=== PATIENT | female | born 1950 | race Caucasian/White ===

== ENCOUNTER 2017-10-25 17:35 | Emergency (ER) | payer MEDICARE, OTHER ==
[2017-10-25] MEDS ORDERED: Ketorolac Tromethamine 30 MG/ML VIAL ONE (17:56)
--- NOTE | 2017-10-25 20:33 | RAD ---
RADIOGRAPH RIGHT HAND 3 VIEWS: 10/25/17 HISTORY: 67-year-old female with nontraumatic right hand pain with decreased range of motion. COMPARISON: None. FINDINGS: No fracture or dislocation. DJD at multiple joints, including moderate to severe at first IP, second DIP, and especially third DIP. Mild to moderate DJD at first CMC. The rest of the joint space are andrea ntained without erosions or osteophytes. Bone mineralization is normal. No periosteal elevation or de structive osseous lesion. No fracture or soft tissue calcification. IMPRESSION: Osteoarthrosis of the first interphalangeal joint, and the second and third distal interphalangeal jonny ints, and to a lesser degree the first carpometacarpal joint. POS: [facility]
== END 2017-10-25 18:40 | disposition home or self-care (01) ==
LOC: SCSER 17:35
DX: M79.641 Pain in right hand (principal); E03.9 Hypothyroidism, unspecified
CPT/HCPCS: 96372; J1885

== ENCOUNTER 2018-05-30 12:05 | Outpatient (CLI) | payer MEDICARE | END 2018-05-30 12:06 | disposition home or self-care (01) | LOC: BICMAMMO 12:05 | PROVIDERS: ATTEND Obstetrics & Gynecology | DX: Z12.31 Encounter for screening mammogram for malignant neoplasm of breast (principal) | CPT/HCPCS: 77063; 77067 ==

== ENCOUNTER 2018-06-03 09:58 | Outpatient (CLI) | payer MEDICARE ==
--- NOTE | 2018-06-03 11:40 | BD ---
DEXA BONE DENSITY SCAN: DATE: 06/03/2018. COMPARISON: None. HISTORY: Postmenopausal female, assess for osteoporosis. FINDINGS: Lumbar Spine: BMD (g/cm2) L1 1.161 T-Score: 1.6 L2 1.378 T-Score: 3.2 L3 1.319 T-Score: 2.1 L4 1.177 T-Score: 1.1 L1-L4 1.256 T-Score: 1.9 Femoral Neck: 1.012 T-Score: 1.5 Total Femur: 1.235 T-Score: 2.4 The FRAX-WHO fracture risk assessment tool is not reported as all T-scores are at or above -1.0. Impression: Normal lumbar spine and femoral neck bone mineral density. POS: [facility]
== END 2018-06-03 09:59 | disposition home or self-care (01) ==
LOC: BICMAMMO 09:58
PROVIDERS: ATTEND Obstetrics & Gynecology
DX: M81.0 Age-related osteoporosis without current pathological fracture (principal); M85.80 Other specified disorders of bone density and structure, unspecified site
CPT/HCPCS: 77080

== ENCOUNTER 2018-08-25 11:52 | Observation (INO) | payer MEDICARE ==
[2018-08-25 12:34] LABS: #Basophils 0.1 thou/uL (0.0-0.2); #Eosinphils 0.1 thou/uL (0.0-0.7); #Lymphocytes 1.6 thou/uL (1.20-3.40); #Monocytes 0.4 thou/uL (0.11-0.59); #Neutrophils 7.1 thou/uL (1.40-6.50); %Basophils 0.6 % (0.0-1.0); %Eosinophils 0.7 % (0.0-10.0); %Lymphocytes 17.2 % (21.0-51.0); %Monocytes 4.6 % (0.0-10.0); %Neutrophils 76.9 % (42.0-75.0); Mean Corpuscular HGB CONC 33.3 g/dL (32.0-36.0); Mean Corpuscular Hemoglobin 31.1 pg (27.0-31.0); Mean Corpuscular Volume 93.5 fL (78.0-98.0); Mean Platelet Volume 7.8 fL (7.4-10.4); Platelet Count 203 thou/uL (130-400); RBC Distribution Width 11.7 % (11.5-14.5); Red Blood Cell (RBC) Count 4.49 mill/uL (4.20-5.40); White Blood Cell (WBC) Count 9.2 thou/uL (4.8-10.8)
[2018-08-25] MEDS ORDERED: Nitroglycerin 2% Ointment 1 INCH/1 GM Packet ONE (12:56)
--- NOTE | 2018-08-25 12:56 | CT ---
CT HEAD WITHOUT CONTRAST: Date: 08/25/18 Multiple axial tomograms obtained through the head without IV enhancement. INDICATION: Mental status change. FINDINGS: Ventricles have normal size and position. No evidence of intracranial mass, hemorrhage, edema, or inf arct. There is opacification of the visualized left maxillary sinus with thickened schneider, indicating a surgical asst gasper mucosal process. Opacification of the visualized left ethmoid and frontal air cells also noted. T he right paranasal sinuses are clear, as are the mastoids. IMPRESSION: 1. No acute intracranial abnormality. 2. 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 POS: [facility]
[2018-08-25 13:00] LABS: ALT (SGPT) 18 U/L (8-55); AST (SGOT) 18 U/L (5-34); Albumin 4.2 g/dL (3.4-4.8); Alkaline Phosphatase 69 U/L (40-150); Anion Gap 13 mmol/L (10-20); BUN (Urea Nitrogen) 14 mg/dL (9.8-20.1); Bilirubin, Total 0.4 mg/dL (0.2-1.2); Calc. Creatinine Clearance 0 mL/min (70-130); Calcium 9.5 mg/dL (7.8-10.44); Carbon Dioxide 24 mmol/L (23-31); Chloride 104 mmol/L (98-107); Estimated GFR-MDRD 82; Globulin 2.9 g/dL (2.4-3.5); Glucose 105 mg/dL (80-115); Lipase 24 U/L (8-78); Potassium 4.5 mmol/L (3.5-5.1); Protein, Total 7.1 g/dL (6.0-8.3); Sodium 136 mmol/L (136-145)
--- NOTE | 2018-08-25 13:04 | RAD ---
PORTABLE CHEST: Date: 08/25/18 HISTORY: Chest pain. FINDINGS: Lung donis are clear. Heart and mediastinum unremarkable. Vasculature normal. IMPRESSION: No acute findings. POS: [facility]
[2018-08-25] MEDS ORDERED: ISOVUE-370 76%-LOCM 1 ML ONE (13:23)
--- NOTE | 2018-08-25 14:17 | PDOC.FPRHP ---
- History of Present Illness Chief Complaint: Slurred speech History of Present Illness: This is a 68 yo female with a pmh of HTN, hypothyroidism who presents to the ED with a cc of vertigo and slurred speech. She reports that she has had ringing in her ears for the past few days and has felt pressure in her ears for the las 3 days. This morning she report vertigo and her daughter reports slurred speech as well. Daughter also reports left leg drift and mild weakness in left extremities. These symptoms resolved at ~10 am. She also reports some epigastric pain and nausea. She has vomited twice. ED Course: 500ml NS bolus Nitro 1 inch - Allergies/Adverse Reactions Allergies Allergy/AdvReac Type Severity Reaction Status Date / Time No Known Allergies Allergy Verified 08/25/18 16:58 - Home Medications Medication Instructions Recorded Confirmed Type Estradiol/Norethindrone Acet 1 tablet PO MWF 08/25/18 08/25/18 History [Activella] Fluticasone Propionate [Flonase 1 spray EA NARE DAILY PRN 08/25/18 08/25/18 History Allergy Relief] Hydrochlorothiazide 12.5 mg PO DAILY 08/25/18 08/25/18 History Levocetirizine Dihydrochloride 5 mg PO HS 08/25/18 08/25/18 History Levothyroxine Sodium [Synthroid] 50 mcg PO DAILY 08/25/18 08/25/18 History - History PMHx: HTN, hypothyroidism PSHx: Hemithyroidecomty, cholecystectomy, D&C, Hernia FHx: non-contributory Social: Denies D/T, socially drinks - Review of Systems General: denies: fever/chills, weight/appetite/sleep changes, night sweats, fatigue Eyes: denies: eye pain, vision changes ENT: denies: nasal congestion, rhinorrhea Respiratory: denies: cough, congestion, shortness of breath, exercise intolerance Cardiovascular: denies: chest pain, palpitation, edema, paroxysmal nocturnal dyspnea, orthopnea Gastrointestinal: reports: nausea, vomiting, abdominal pain. denies: diarrhea, constipation, GI bleeding Genitourinary: denies: incontinence, dysuria Skin: denies: rashes, lesions Musculoskeletal: denies: pain, tenderness Neurological: reports: other (vertigo). denies: numbness, syncope, seizure, weakness Psychological: denies: anxiety, depression - Vital signs BP: 142/79 HR: 56 RR: 18 Tmax: 98.6 Pox: 97% on ra Wt: 117 kg - Physical Exam Constitutional: NAD, awake, alert and oriented, well developed HEENT: normocephalic and atraumatic, PERRLA, EOMI, conjunctiva clear, TM's clear and intact (no signs of erythema or masses behind TMs), grossly normal hearing, MMM Neck: FROM, trachea midline, no JVD Chest: no-tender to palpation, no lesions Heart: RRR, normal S1/S2, no murmurs/rubs/gallops, pulses present, no edema Lungs: CTAB, no respiratory distress, good air movement, no wheezing Abdomen: soft, non-tender, bowel sounds present, no masses/distention Musculoskeletal: normal structure, normal tone, ROM grossly normal Neurological: no focal deficit, CN II-XII intact, normal sensation, other (no dysdiadochokinesis) Skin: good turgor, capillary refill <2 seconds Heme/Lymphatic: no unusual bruising or bleeding, no purpura Psychiatric: normal mood and affect, good judgment and insight, intact recent and remote memory FMR H&P: Results - Labs Result Diagrams: 08/26/18 04:53 08/26/18 04:53 Lab results: WBC 9.2 thou/uL (4.8-10.8) 08/25/18 12:27 Hgb 14.0 g/dL (12.0-16.0) 08/25/18 12:27 Hct 41.9 % (36.0-47.0) 08/25/18 12:27 MCV 93.5 fL (78.0-98.0) 08/25/18 12:27 Plt Count 203 thou/uL (130-400) 08/25/18 12:27 Neutrophils % 76.9 % (42.0-75.0) H 08/25/18 12:27 Sodium 136 mmol/L (136-145) 08/25/18 12:27 Potassium 4.5 mmol/L (3.5-5.1) 08/25/18 12:27 Chloride 104 mmol/L (98-107) 08/25/18 12:27 Carbon Dioxide 24 mmol/L (23-31) 08/25/18 12:27 BUN 14 mg/dL (9.8-20.1) 08/25/18 12:27 Creatinine 0.71 mg/dL (0.6-1.1) 08/25/18 12:27 Glucose 105 mg/dL (80-115) 08/25/18 12:27 Calcium 9.5 mg/dL (7.8-10.44) 08/25/18 12:27 Total Bilirubin 0.4 mg/dL (0.2-1.2) 08/25/18 12:27 AST 18 U/L (5-34) 08/25/18 12:27 ALT 18 U/L (8-55) 08/25/18 12:27 Alkaline Phosphatase 69 U/L (40-150) 08/25/18 12:27 Serum Total Protein 7.1 g/dL (6.0-8.3) 08/25/18 12:27 Albumin 4.2 g/dL (3.4-4.8) 08/25/18 12:27 Lipase 24 U/L (8-78) 08/25/18 12:27 - EKG Interpretation EKG: sinus kushal, incomplete RBBB - Radiology Interpretation Chest x-ray Status: report reviewed by me (no acute intrathoracic findings) CT scan - head Status: report reviewed by me (1. No acute intracranial abnormality. 2. Evidence of chronic mucosal abnormality involving the left paranasal sinuses.) FMR H&P: A/P - Problem List (1) Vertigo Current Visit: Yes Status: Acute Code(s): R42 - DIZZINESS AND GIDDINESS (2) Hypothyroidism Current Visit: Yes Status: Acute Code(s): E03.9 - HYPOTHYROIDISM, UNSPECIFIED (3) HTN (hypertension) Current Visit: Yes Status: Acute Code(s): I10 - ESSENTIAL (PRIMARY) HYPERTENSION - Plan This is a 68 yo female with a pmh of HTN, hypothyroidism Vertigo and slurred speech, r/o TIA vs. CVA -Admit to stroke -CTA head and neck, MRI brain pending -TTE pending -Initiate aspirin and statin therapy Epigastric pain/discomfort -Troponin negative x1, repeat x1 -EKG shows no signs of ischemia -Heart score of 4 HTN -Continue home HCTZ Hypothyroidism -Continue home levothyroxine Code: Full Prophylaxis: SCDs Family: at bedside Diet: Regular PCP: [facility] Disposition: DC in 1-2 days FMR H&P: Upper Level - Pertinent history 68 yo F here with complaint of dizziness starting this morning at 0530 and lasting for a few hours. Family also noticed slurred speech and weakness in her legs for the same period of time. Since then all symptoms have resolved. Dizziness was described as the room spinning. She had some associated nausea. She has no hx of cva or heart disease. She does have a hx of hypothyroid and HTN. ROS General - Denies fever or chills Neuro - complains of dizziness with associated slurred speech and lower extremity weakness. Denies numbness CV - denies chest pain or palpitations Resp - denies SOB or cough Abd - complains of nausea - Pertinent findings See consultant intern note for vitals and full exam General A&O x4 no acute distress HEENT normocephalic atraumatic Neuro CN II-XII intact, normal strength and sensation CV RRR, no murmur Resp CTA No significant lab abnormalities - Plan Date/Time: 08/25/18 [id number] I, Seb Valdez DO, have evaluated this patient and agree with findings/plan as outlined by consultant intern resident. Pertinent changes/additions are listed here. 1. TIA vs CVA, suspected - currently asymptomatic and at baseline, however symptoms are concerning for possible CVA/TIA - admit to stroke - CTA head/neck, Echo, MRI in am - Risk stratify with lipids, A1c, and TSH 2. HTN - home meds 3. Hypothyroid - home meds PPx SCD Diet Heart healthy Addendum - Attending - Attending Attestation Date/Time: 08/25/18 [id number] I personally evaluated the patient and discussed the management with Dr. Cesar I agree with the History, Examination, Assessment and Plan documented above with any addition or exceptions noted below. 68 yo female with c/o lightheaded last pm this am with vertigo and tinnitus from [id number] today with nausea vomiting and epigastric pressure. Patients Daughter in law noticed slurred speech and left leg drifting patient sent for evaluation and seen in ER initial CT head wnl admit TIA r/o CVA. PMHX: MEDS: levothyroxine, HCTZ prn fluid retention, zyrtec prn, Patient taking unopposed estrogen 3x/week, meloxicam in the past A1 Surgery: partial thyroidectomy, D&C, cholecystectomy,umbilical herniorraphy allergies NKDA hayfever followed by ENT with tinnitus and sinus problems exam VSS non focal neuro exam at this time no nystagmus demonstrated no weakness to extremities TIA r/o CVA epigastric fullness r/o anginal equivalent trend troponins Admit for observation rec MRI expectant management
[2018-08-25 16:07] LABS: Troponin I Less than 0.010 ng/mL (< 0.028)
[2018-08-25] MEDS ORDERED: Ondansetron ODT 4 MG TAB SL PRN (16:27)
[2018-08-25] MEDS ORDERED: Ondansetron PF 4 MG/2 ML Vial IVP PRN (16:27)
[2018-08-25] MEDS ORDERED: Ondansetron ODT 4 MG TAB PO PRN (16:44)
[2018-08-25] MEDS ORDERED: Acetaminophen 325 MG TAB PO PRN (16:44)
[2018-08-25 16:51] VITALS: BMI 40.0
[2018-08-25 18:59] LABS: Troponin I Less than 0.010 ng/mL (< 0.028)
--- NOTE | 2018-08-25 20:22 | CT ---
CTA BRAIN WITH IV CONTRAST AND 3D POST PROCESSING: History: Mental status changes. Slurred speech. Dizziness. FINDINGS/IMPRESSION: Correlation is made with a CT of the brain without contrast of 12:36 p.m. from the same date. There is good flow in the intracranial carotid artery and vertebral basilar systems. Vascular calcifi cations are present. No evidence of high grade stenosis, major branch occlusion or aneurysm formation is seen. The right vertebral artery appears dominant. POS: [facility]
[2018-08-25] MEDS: Atorvastatin Calcium 40 MG TAB PO SCH (21:25)
[2018-08-26 05:16] LABS: #Basophils 0.1 thou/uL (0.0-0.2); #Eosinphils 0.1 thou/uL (0.0-0.7); #Lymphocytes 3.2 thou/uL (1.20-3.40); #Monocytes 0.7 thou/uL (0.11-0.59); %Basophils 0.6 % (0.0-1.0); %Eosinophils 1.2 % (0.0-10.0); %Lymphocytes 28.5 % (21.0-51.0); %Monocytes 6.6 % (0.0-10.0); %Neutrophils 63.2 % (42.0-75.0); Hemoglobin 13.8 g/dL (12.0-16.0); Mean Corpuscular HGB CONC 33.7 g/dL (32.0-36.0); Mean Corpuscular Hemoglobin 31.4 pg (27.0-31.0); Mean Corpuscular Volume 93.1 fL (78.0-98.0); Mean Platelet Volume 7.8 fL (7.4-10.4); Platelet Count 234 thou/uL (130-400); RBC Distribution Width 11.7 % (11.5-14.5); Red Blood Cell (RBC) Count 4.38 mill/uL (4.20-5.40); White Blood Cell (WBC) Count 11.1 thou/uL (4.8-10.8)
[2018-08-26 05:41] LABS: Anion Gap 13 mmol/L (10-20); BUN (Urea Nitrogen) 11 mg/dL (9.8-20.1); Calc. Creatinine Clearance 139 mL/min (70-130); Calcium 9.7 mg/dL (7.8-10.44); Carbon Dioxide 23 mmol/L (23-31); Cardiac Risk 3.5 (Less than 4.5); Chloride 106 mmol/L (98-107); Cholesterol 169 mg/dl (< 200 Desired); Estimated GFR-MDRD 80; Glucose 94 mg/dL (80-115); HDL Cholesterol 48 mg/dL (>60 Neg Risk); LDL Cholesterol, Calculated 88 mg/dL; Potassium 4.1 mmol/L (3.5-5.1); Sodium 138 mmol/L (136-145); Triglycerides 167 mg/dL (Less than 150)
--- NOTE | 2018-08-26 06:55 | PDOC.FM ---
- Subjective Subjective: Emesis x1 yesterday, some abd tightness. no chest pain. Some vertigo and ear fullness still. No slurred speech, weakness. - Objective MAR Reviewed: Yes Vital Signs & Weight: Vital Signs (12 hours) Temp Pulse Resp BP Pulse Ox 08/26/18 04:00 98.1 F 60 16 136/65 95 08/26/18 00:00 98.6 F 62 16 121/65 94 L 08/25/18 20:00 98 F 56 L 16 166/78 H 97 Weight Weight 119.522 kg I&O: 08/24/18 08/25/18 08/26/18 06:59 06:59 06:59 Intake Total 1500 Output Total 0 Balance 1500 Result Diagrams: 08/26/18 04:53 08/26/18 04:53 Phys Exam - Physical Examination Constitutional: NAD HEENT: PERRLA, moist MMs Neck: full ROM Respiratory: no wheezing, clear to auscultation bilateral Cardiovascular: RRR, no significant murmur Gastrointestinal: soft, non-tender Neurological: non-focal, moves all 4 limbs Psychiatric: normal affect, A&O x 3 Skin: no rash, cap refill <2 seconds Dx/Plan (1) Vertigo Code(s): R42 - DIZZINESS AND GIDDINESS Status: Acute (2) Nausea and vomiting Code(s): R11.2 - NAUSEA WITH VOMITING, UNSPECIFIED Status: Acute (3) HTN (hypertension) Code(s): I10 - ESSENTIAL (PRIMARY) HYPERTENSION Status: Acute (4) Hypothyroidism Code(s): E03.9 - HYPOTHYROIDISM, UNSPECIFIED Status: Acute - Plan Plan: This is a 68 yo female with a pmh of HTN, hypothyroidism #Vertigo and slurred speech, r/o TIA vs. CVA -CTA head negative for occlusion -CT brain neg for ICH - MRI brain pending this AM - Pt with no further neuro sxs -TTE pending -ASCVD >7.5%, start high intensity statin, start ASA -DDX: BPPV with vertigo type sxs, ear fullness. If MRI neg. can try trial of meclizine #Leukocytosis -left shift (inc neutrophil count), afebrile -will obtain procal - likely stress rxn from emesis last night #Nausea & vomiting -Takes ranitidine -viral gastritis vs. GERD -will start on PPI & ranitdine #HTN -Continue home HCTZ #Hypothyroidism -Continue home levothyroxine Code: Full Prophylaxis: SCDs Family: at bedside Diet: HH PCP: IVANA Disposition: DC in 1-2 days Addendum - Attending - Attending Attestation Date/Time: 08/26/18 3593 I personally evaluated the patient and discussed the management with Dr. Price. I agree with the History, Examination, Assessment and Plan documented above with any addition or exceptions noted below. The patient's dizziness had improved during rounds this morning. Her nausea is also resolved. Awaiting mri results. Will do [id number] if mri negative. Ordering carotid doppler. Echo has been taken and read is pending.
[2018-08-26 07:14] LABS: Hemoglobin A1c 4.8 % (4.0-6.0)
[2018-08-26] MEDS: Famotidine 20 MG TAB PO SCH ×2 (08:52→23:15)
[2018-08-26] MEDS: Aspirin 81 mg Enteric Coated Tablet PO SCH (08:53)
[2018-08-26] MEDS ORDERED: Prevnar 13-Val Conj/PF 0.5 ML SYRINGE IM ONE (09:00)
--- NOTE | 2018-08-26 09:30 | MRI ---
MRI BRAIN WITHOUT CONTRAST: Date: 08/26/18 Multiplanar, multisequential imaging of brain obtained. INDICATION: Stroke. FINDINGS: Ventricles have normal size and position. There is no evidence of restricted diffusion. No evidence o f acute infarct. No evidence of mass or edema. No significant white matter abnormality. The mucosal edema in the left frontal, ethmoid, and maxillary sinuses are again noted. This was descr ibed on yesterday's CT. IMPRESSION: No acute intracranial abnormality. POS: [facility]
--- NOTE | 2018-08-26 17:19 | ULT ---
BILATERAL CAROTID DUPLEX ULTRASOUND INCLUDING COLOR AND SPECTRAL DOPPLER IMAGING: History: Dizziness and slurred speech, stroke, TIA. FINDINGS: Prominent visceral plaque in the proximal ICAs bilaterally. PSV right ICA 96 cm/sec, EDV 25 cm/sec, ICA/CCA ratio 1.0. PSV left ICA 76 cm/sec, EDV 19 cm/sec, ICA/CCA ratio 0.8. Vertebral flow is antegrade. IMPRESSION: Bilateral visceral plaque in the proximal ICAs, evidence for bilateral carotid artery vascular diseas e. No hemodynamically significant stenosis. POS: [facility]
[2018-08-26] MEDS: Atorvastatin Calcium 40 MG TAB PO SCH (23:15)
--- NOTE | 2018-08-27 06:31 | PDOC.FM ---
- Subjective Subjective: NAEO. No emesis, diarrhea, abd pain, or nystagumsu. No vertigo. - Objective MAR Reviewed: Yes Vital Signs & Weight: Vital Signs (12 hours) Temp Pulse Resp BP Pulse Ox 08/27/18 04:00 97.9 F 55 L 19 140/68 95 08/27/18 00:00 98.5 F 51 L 18 132/69 96 08/26/18 20:00 98.3 F 58 L 18 130/67 95 Weight Weight 119.522 kg I&O: 08/25/18 08/26/18 08/27/18 06:59 06:59 06:59 Intake Total 1500 680 Output Total 0 Balance 1500 680 Result Diagrams: 08/26/18 04:53 08/26/18 04:53 Phys Exam - Physical Examination Constitutional: NAD HEENT: PERRLA, moist MMs Neck: no nodes Respiratory: no wheezing, clear to auscultation bilateral Cardiovascular: RRR, no significant murmur Gastrointestinal: soft, non-tender Musculoskeletal: no edema Neurological: non-focal, moves all 4 limbs neg stacey hallpike, negative HINTS Psychiatric: normal affect, A&O x 3 Dx/Plan (1) Vertigo Code(s): R42 - DIZZINESS AND GIDDINESS Status: Acute (2) Nausea and vomiting Code(s): R11.2 - NAUSEA WITH VOMITING, UNSPECIFIED Status: Acute (3) HTN (hypertension) Code(s): I10 - ESSENTIAL (PRIMARY) HYPERTENSION Status: Acute (4) Hypothyroidism Code(s): E03.9 - HYPOTHYROIDISM, UNSPECIFIED Status: Acute (5) Sinus bradycardia Code(s): R00.1 - BRADYCARDIA, UNSPECIFIED Status: Acute - Plan Plan: This is a 68 yo female with a pmh of HTN, hypothyroidism #Vertigo and slurred speech, r/o TIA vs. CVA -CTA head negative occlusion - MRI brain neg for infarcts -TTE with diastolic dysfux, mild mitral & triscuspid regurg -Carotid U/S neg for significant stenosis -Patient likely very well could have had TIA, will optimize medical management: ASA, statin -DDX: BPPV with vertigo type sxs, ear fullness, TIA -Negative stacey hallpike -If vertigo sxs still present, can send home with meclizine -LIkely peripheral vertigo #Leukocytosis, resolved #Nausea & vomiting -Improved with ranitidine & PPI #HTN -Continue home HCTZ #Hypothyroidism -Continue home levothyroxine Code: Full Prophylaxis: SCDs Family: at bedside Diet: SOURAV PCP: [facility] Disposition: DC home today pending clinical course Addendum - Attending - Attending Attestation Date/Time: 08/27/18 8721 I personally evaluated the patient and discussed the management with Dr. Price. I agree with the History, Examination, Assessment and Plan documented above with any addition or exceptions noted below. Patient is back to baseline. Carotid doppler showed no significant stenosis. Will d/c home.
[2018-08-27] MEDS: Aspirin 81 mg Enteric Coated Tablet PO SCH (08:44)
[2018-08-27] MEDS: Famotidine 20 MG TAB PO SCH (08:45)
[2018-08-27 11:31] VITALS: BP 147/69; TEMP 98.3
--- NOTE | 2018-08-28 02:29 | DIS ---
DATE OF ADMISSION: 08/25/2018 DATE OF DISCHARGE: 08/27/2018 ADMITTING ATTENDING: Manav Duarte MD. DISCHARGE ATTENDING: Kamryn Milner MD. RESIDENT: Clary Price, PGY-1 CONSULTS: None. PROCEDURES AND IMAGIN. CT angio of head: Good flow in intracranial carotid artery and vertebrobasilar systems with no vascular calcifications. No evidence of high-grade stenosis, major branch occlusion, or aneurysms. 2. Carotid Doppler study: Bilateral distal plaque in the proximal ICAs with vascular disease. However, no hemodynamically significant stenosis (upon clarification with radiology, it is meant less than 50% stenosis). 3. Brain MRI: No acute intracranial abnormality. No evidence of acute infarct. Mucosal edema in the left frontal ethmoid and maxillary sinuses. 4. Transthoracic echocardiography: Ejection fraction 55% to 60%, diastolic dysfunction, mild mitral and tricuspid regurgitation. PRIMARY DIAGNOSES: 1. Transient slurred speech, vertigo, left lower extremity weakness, likely secondary to peripheral vertigo. Transient ischemic attack and stroke ruled out. 2. Peripheral vertigo. 3. Nausea and vomiting, likely secondary to gastroesophageal reflux disease versus viral gastritis. 4. Sinus bradycardia. SECONDARY DIAGNOSES: 1. Hypertension. 2. Hypothyroidism. 3. Osteoarthritis. 4. Elevated triglycerides. DISCHARGE MEDICATIONS: New: 1. Protonix 40 mg p.o. daily. 2. Zofran 4 mg p.o. q.6 hours p.r.n. for nausea. 3. Pepcid 20 mg p.o. b.i.d. 4. Lipitor 40 mg p.o. at bedtime. 5. Aspirin 81 mg p.o. daily. 6. Acetaminophen 650 mg p.o. q.4 hours p.r.n. for headache or Tylenol. HOME MEDICATIONS: All resumed: 1. Synthroid 50 mcg p.o. daily. 2. Flonase. 3. Levocetirizine 5 mg p.o. at bedtime. 4. HCTZ 12.5 mg p.o. daily. 5. Activella 1 tablet p.o. Sunday, Sunday, and Sunday. DISCONTINUED MEDICATIONS: None. HISTORY OF PRESENT ILLNESS/HOSPITAL COURSE: Ms. Renner is a 68-year-old female with hypertension and hypothyroidism, who was brought to the ED after few-hour symptom duration of vertigo, slurred speech, and left lower extremity weakness. She also had some reported vertigo and ear pressure for the past 3 days. Symptoms had resolved by the time she had reached the ER. The patient denied prior hx of CVA. Workup for stroke was negative including CT head and angio. History was slightly suspicious for stroke so the patient was admitted for TIA versus CVA rule out. Brain MRI negative for ischemia, carotid duplex negative for significant stenosis. Patient remained asymptomatic during hospital stay. Telemetry monitoring was unremarkable. Peripheral causes of her symptoms were considered such as BPPV; however, Hiral Hallpike was negative. The patient was initiated on aspirin and statin therapy for secondary prevention. ABD PAIN/NAUSEA: In regard to her epigastric pain and discomfort and nausea. She has a history of dyspepsia. Symptoms resolved when placed on PPI and ranitidine. SINUS BRADYCARDIA: automotive dismantler showed sinus bradycardia. The patient denied prior history of this. The patient remained asymptomatic, so no further intervention was pursued. However, recommend outpatient workup. CONCLUSION: Patient's symptoms are likely not centrally related due to negative workup for stroke. In regards to if she had a TIA, that is also questionable since her symptoms distribution is odd, and does not neurologically make sense based on cerebral anatomy. It is likely her vertigo is likely peripheral. Would advise doing further outpatient workup for this if symptoms continue to not improve or persist. DISPOSITION: Stable. DISCHARGE INSTRUCTIONS: 1. Location: Home. 2. Diet: Heart healthy. 3. Activity: As tolerated. 4. Followup: Please follow up with Dr. Valente on your scheduled appointment on 09/02/18. 5. In regard to mild mitral and tricuspid regurgitation, can consider annual echos to continue monitoring. 6. Consider followup for sinus bradycardia. 7. Please follow up for persistence of peripheral vertigo. May helpful to repeat [place]-Hallpike testing to confirm peripheral etiology should patient's symptoms not improve. Job ID: [id number] [facility]
== END 2018-08-27 12:44 | disposition home or self-care (01) ==
LOC: ERS 11:52 → 2SE 13:37
PROVIDERS: ADMIT Family Medicine; ATTEND Family Medicine
DX: R47.81 Slurred speech (principal); R42 Dizziness and giddiness; R53.1 Weakness; R10.13 Epigastric pain; R11.2 Nausea with vomiting, unspecified; R00.1 Bradycardia, unspecified; I10 Essential (primary) hypertension; E89.0 Postprocedural hypothyroidism; M19.90 Unspecified osteoarthritis, unspecified site; E78.1 Pure hyperglyceridemia; Z79.899 Other long term (current) drug therapy; Z79.3 Long term (current) use of hormonal contraceptives
CPT/HCPCS: 70450; 70496; 70551; 71045; 80048; 80053; 80061; 83036; 83690; 84145; 84443; 84484 ×2; 85025 ×2; 90670; 93005; 93306; 93880; 96361; 96374; 97139 ×2; 99285; G0009; G0378 ×2; 36415; 90471; 96360; J2405; Q0162; Q9966

== ENCOUNTER 2019-07-07 09:58 | Outpatient (CLI) | payer MEDICARE ==
--- NOTE | 2019-07-07 10:52 | MMO ---
Bilateral MAMMO Bilat Screen [facility]. CLINICAL HISTORY: Patient is 68 years old and is seen for screening. The patient has no family history of breast cancer. The patient has no personal history of cancer. VIEWS: The views performed were: bilateral craniocaudal with tomosynthesis and bilateral mediolateral oblique with tomosynthesis. FILMS COMPARED: The present examination has been compared to prior imaging studies performed at [facility] on 05/30/2018, and at [facility] on 06/23/2016 and 07/11/2016. This study has been interpreted with the assistance of computer-aided detection. MAMMOGRAM FINDINGS: There are scattered fibroglandular densities. There are stable benign appearing calcifications seen in both breasts. There are no suspicious masses, suspicious calcifications, or new areas of architectural distortion. IMPRESSION: THERE IS NO MAMMOGRAPHIC EVIDENCE OF MALIGNANCY. A ROUTINE FOLLOW-UP MAMMOGRAM IN 1 YEAR IS RECOMMENDED. THE RESULTS OF THIS EXAM WERE SENT TO THE PATIENT. ACR BI-RADS Category 2 - Benign finding MAMMOGRAPHY NOTE: 1. A negative mammogram report should not delay a biopsy if a dominant of clinically suspicious mass is present. 2. Approximately 10% to 15% of breast cancers are not detected by mammography. 3. Adenosis and dense breasts may obscure an underlying neoplasm. Reported by: HANNA BOSS MD Electonically Signed: [id number]
== END 2019-07-07 09:59 | disposition home or self-care (01) ==
LOC: BICMAMMO 09:58
PROVIDERS: ATTEND Family Medicine
DX: Z12.31 Encounter for screening mammogram for malignant neoplasm of breast (principal)
CPT/HCPCS: 77063; 77067

== ENCOUNTER 2020-07-06 10:48 | Outpatient (CLI) | payer MEDICARE | END 2020-07-06 10:49 | disposition home or self-care (01) | LOC: BICMAMMO 10:48 | PROVIDERS: ATTEND Family Medicine | DX: Z12.31 Encounter for screening mammogram for malignant neoplasm of breast (principal); Z13.820 Encounter for screening for osteoporosis; E28.39 Other primary ovarian failure; Z78.0 Asymptomatic menopausal state | CPT/HCPCS: 77063; 77067; 77080 ==

== ENCOUNTER 2021-10-28 12:24 | Emergency (ER) | payer MEDICARE ==
[2021-10-28 13:36] LABS: #Basophils 0.1 thou/uL (0.0-0.2); #Eosinphils 0.2 thou/uL (0.0-0.7); #Lymphocytes 2.1 thou/uL (1.20-3.40); #Monocytes 0.9 thou/uL (0.11-0.59); #Neutrophils 4.3 thou/uL (1.40-6.50); %Basophils 1.2 % (0.0-1.0); %Eosinophils 2.7 % (0.0-10.0); %Lymphocytes 27.5 % (21.0-51.0); %Monocytes 11.8 % (0.0-10.0); %Neutrophils 56.9 % (42.0-75.0); Hemoglobin 13.9 g/dL (12.0-16.0); Mean Corpuscular HGB CONC 33.6 g/dL (32.0-36.0); Mean Corpuscular Hemoglobin 31.8 pg (27.0-31.0); Mean Corpuscular Volume 94.7 fL (78.0-98.0); Platelet Count 191 thou/uL (130-400); RBC Distribution Width 11.8 % (11.5-14.5); Red Blood Cell (RBC) Count 4.37 mill/uL (4.20-5.40); White Blood Cell (WBC) Count 7.5 thou/uL (4.8-10.8)
[2021-10-28 14:01] LABS: ALT (SGPT) 24 U/L (8-55); AST (SGOT) 20 U/L (5-34); Albumin 4.1 g/dL (3.4-4.8); Alkaline Phosphatase 84 U/L (40-110); Anion Gap 15 mmol/L (10-20); BUN (Urea Nitrogen) 12 mg/dL (9.8-20.1); Bilirubin, Total 0.6 mg/dL (0.2-1.2); Calc. Creatinine Clearance 0 mL/min (70-130); Calcium 9.6 mg/dL (7.8-10.44); Carbon Dioxide 25 mmol/L (23-31); Chloride 104 mmol/L (98-107); Estimated GFR 75; Globulin 3.1 g/dL (2.4-3.5); Glucose 114 mg/dL (83-110); Potassium 3.7 mmol/L (3.5-5.1); Protein, Total 7.2 g/dL (5.8-8.1); Sodium 140 mmol/L (136-145)
[2021-10-28] MEDS ORDERED: Ketorolac Tromethamine 30 MG/ML VIAL ONE (14:35)
[2021-10-28 14:59] LABS: SARS-CoV-2 NAA Rapid Test DETECTED (NotDetected)
== END 2021-10-28 15:30 | disposition home or self-care (01) ==
LOC: ERS 12:24
DX: U07.1 COVID-19 (principal); R07.89 Other chest pain; J06.9 Acute upper respiratory infection, unspecified; I45.10 Unspecified right bundle-branch block; I44.0 Atrioventricular block, first degree; R00.1 Bradycardia, unspecified; E03.9 Hypothyroidism, unspecified
CPT/HCPCS: 71045; 80053; 83690; 84484; 85025; 93005; 96372; 99285; U0002; 36415; J1885

== ENCOUNTER 2022-02-14 11:13 | Outpatient (CLI) | payer MEDICARE | END 2022-02-14 11:14 | disposition home or self-care (01) | LOC: DTY/OP 11:13 | PROVIDERS: ATTEND Family Medicine | DX: E78.5 Hyperlipidemia, unspecified (principal); I10 Essential (primary) hypertension; Z68.41 Body mass index [BMI] 40.0-44.9, adult; Z86.73 Personal history of transient ischemic attack (TIA), and cerebral infarction without residual deficits | CPT/HCPCS: 97802 ==

== ENCOUNTER 2022-08-17 11:54 | Outpatient (CLI) | payer MEDICARE | END 2022-08-17 11:55 | disposition home or self-care (01) | LOC: BICMAMMO 11:54 | PROVIDERS: ATTEND Family Medicine | DX: Z12.31 Encounter for screening mammogram for malignant neoplasm of breast (principal) | CPT/HCPCS: 77063; 77067 ==

== ENCOUNTER 2022-11-10 06:34 | Day surgery (SDC) | payer MEDICARE ==
[2022-11-09 12:36] VITALS: BMI 40.3
[2022-11-10] MEDS ORDERED: PROPOFOL 200 MG/20 ML VIAL ONE (09:16)
[2022-11-10] MEDS ORDERED: Lidocaine 1% PF 5 ML VIAL ONE (09:16)
== END 2022-11-10 12:10 | disposition home or self-care (01) ==
LOC: SDC 06:34
PROVIDERS: ATTEND Internal Medicine Gastroenterology
PROC: 0DBL8ZZ Excision of Transverse Colon, Via Natural or Artificial Opening Endoscopic (ICD-10-PCS; principal; 2022-11-10)
PROC: 0DB68ZZ Excision of Stomach, Via Natural or Artificial Opening Endoscopic (ICD-10-PCS; 2022-11-10)
DX: D12.3 Benign neoplasm of transverse colon (principal); K31.7 Polyp of stomach and duodenum; K57.30 Diverticulosis of large intestine without perforation or abscess without bleeding; K21.9 Gastro-esophageal reflux disease without esophagitis; I25.10 Atherosclerotic heart disease of native coronary artery without angina pectoris; E78.5 Hyperlipidemia, unspecified; G47.30 Sleep apnea, unspecified; E03.9 Hypothyroidism, unspecified; M19.90 Unspecified osteoarthritis, unspecified site; D64.9 Anemia, unspecified; Z90.89 Acquired absence of other organs; Z90.49 Acquired absence of other specified parts of digestive tract; Z79.890 Hormone replacement therapy; Z79.899 Other long term (current) drug therapy
CPT/HCPCS: 88305; J2704